=== PATIENT | male | born 1995 ===

== ENCOUNTER 2019-12-27 20:23 | Emergency (ER) | payer OTHER ==
[~2019-12-27] VITALS: Ht 182.9 cm; Wt 127.0 kg
[2019-12-27] MEDS ORDERED: CLARITIN10 MG PO (20:41)
[2019-12-27] MEDS ORDERED: TUSNEL LIQUID178 ML PO (22:53)
[2019-12-27] MEDS ORDERED: ZITHROMAX500 MG PO (22:53)
== END 2019-12-27 23:13 | disposition home or self-care (01) ==
LOC: ER 20:23
DX: B34.9 Viral infection, unspecified (principal)